=== PATIENT | female | born 1960 | race American Indian/Alaskan Native ===

== ENCOUNTER 2017-08-13 22:44 | Emergency (ER) | payer SELFPAY ==
[2017-08-13] MEDS ORDERED: MOTRIN PO ONE (23:10)
[2017-08-13 23:38] LABS: Basophils % (Auto) 0.2 % (0.0-1.8); Eosinophils % (Auto) 0.1 % (0.0-4.3); Hematocrit 43.9 % (30.3-42.9); Hemoglobin 14.6 gm/dl (10.1-14.3); Mean Corpuscular HGB Conc 33 % (30-34); Mean Corpuscular Hemoglobin 30 pg (28-32); Mean Corpuscular Volume 89 fl (79-97); Platelet Count 251 K/mm3 (140-440); Red Blood Count 4.93 M/mm3 (3.65-5.03); Red Cell Distribution Width 13.7 % (13.2-15.2); White Blood Count 11.7 K/mm3 (4.5-11.0)
[2017-08-13 23:58] LABS: Anion Gap 18 mmol/L; Blood Urea Nitrogen 10 mg/dL (7-17); Calcium 9.4 mg/dL (8.4-10.2); Carbon Dioxide 24 mmol/L (22-30); Chloride 101.7 mmol/L (98-107); Glucose 114 mg/dL (65-100); Potassium 4.1 mmol/L (3.6-5.0); Sodium 140 mmol/L (137-145)
[2017-08-14] MEDS ORDERED: TYLENOL PO ONE (01:00)
[2017-08-14] MEDS ORDERED: TYLENOL ONE (01:05)
--- NOTE | 2017-08-14 01:40 | Emergency Department Report ---
HPI - General Chief Complaint: Abdominal Pain Time Seen by Provider: 08/14/17 01:22 - HPI HPI: This is a 57 year-old female presents to the emergency department from home, with her daughter at bedside, with complaint of a one to 2 day history of some right-sided abdominal and flank pain along with fever. She denies any vaginal bleeding, vaginal discharge, dysuria, cough, chest pain or shortness of breath. She does have a history of kidney stones. She took some Tylenol for her fever and discomfort earlier today without much relief. She does not currently have a primary care physician. Recent travel or sick contacts at home. ED Past Medical Hx - Past Medical History Previous Medical History?: Yes Additional medical history: RIGHT HEAD TUMOR - Surgical History Past Surgical History?: Yes Additional Surgical History: TUMOR REMOVAL / PARTIAL THYROIDECTOMY - Social History Smoking Status: Never Smoker Substance Use Type: None ED Review of Systems ROS: Stated complaint: ABD PAIN; N/V Other details as noted in HPI Comment: All other systems reviewed and negative Constitutional: chills, fever Eyes: denies: eye pain, eye discharge, vision change ENT: denies: ear pain, throat pain Respiratory: denies: cough, shortness of breath, wheezing Cardiovascular: denies: chest pain, palpitations Gastrointestinal: abdominal pain. denies: vomiting Genitourinary: denies: urgency, dysuria, discharge Musculoskeletal: denies: back pain, joint swelling, arthralgia Skin: denies: rash, lesions Neurological: denies: headache, weakness, paresthesias Physical Exam - Physical Exam Vital Signs: Vital Signs 08/13/17 08/14/17 23:01 00:59 Temperature 102.3 F H 100.6 F H Pulse Rate 124 H 114 H Respiratory 18 20 Rate Blood Pressure 123/73 122/71 O2 Sat by Pulse 95 97 Oximetry Physical Exam: GENERAL: The patient is well-developed well-nourished. HENT: Normocephalic. Atraumatic. Patient has moist mucous membranes. EYES: Extraocular motions are intact. Pupils equal reactive to light bilaterally. NECK: Supple. Trachea is midline. CHEST/LUNGS: Clear to auscultation. There is no respiratory distress noted. HEART/CARDIOVASCULAR: Regular. There is mild tachycardia. There is no gallop rub or murmur. ABDOMEN: Abdomen is soft. There is no abdominal or flank tenderness to palpation. No guarding or rebound tenderness. Patient has normal bowel sounds. There is no abdominal distention. SKIN: There is no rash. There is no edema. There is no diaphoresis. NEURO: The patient is awake, alert, and oriented. The patient is cooperative. The patient has no focal neurologic deficits. The patient has normal speech. MUSCULOSKELETAL: There is no tenderness or deformity. There is no limitation range of motion. There is no evidence of acute injury. ED Course Vital Signs 08/13/17 08/14/17 23:01 00:59 Temperature 102.3 F H 100.6 F H Pulse Rate 124 H 114 H Respiratory 18 20 Rate Blood Pressure 123/73 122/71 O2 Sat by Pulse 95 97 Oximetry ED Medical Decision Making - Lab Data Result diagrams: 08/13/17 23:24 08/13/17 23:24 - Radiology Data Radiology results: report reviewed CT of the abdomen and pelvis with IV contrast shows a cholecystectomy. The biliary stent appears in good position. No evidence of appendicitis or obstructive uropathy. Left adnexal mass as described but appears compatible with a dermoid cyst/teratoma. No evidence of torsion. Extensive arthritic changes of the lumbar spine. Benign cortical cyst in both kidneys. - Medical Decision Making 57-year-old female presents to the emergency department with a complaint of some right sided abdominal and flank pain as well as a fever for the past 1-2 days. Her labs are mostly unremarkable and do not show any etiology of infection including no urinary tract infection. No significant leukocytosis. CT of the abdomen and pelvis with IV contrast was done that did not show any urinary or intestinal obstructions. No pancreatitis, no appendicitis or any obvious source of infection. She has a previous cholecystectomy. There is a left-sided adnexal mass that appears most consistent with a dermoid cyst and/or a teratoma. She was given some Tylenol, ibuprofen, IV fluid resuscitation and her vitals improved. Tachycardia resolved, fever resolved. The patient was reevaluated multiple times of her multiple hours and says she is feeling much better. She will be given some referrals for [facility] so that she could follow-up regarding the adnexal mass. She will use Tylenol and/or ibuprofen as necessary for fever and/or discomfort. She will return to the ER with any worsening of her symptoms or any acute distress. - Differential Diagnosis UTI, sepsis, nephrolithiasis, diverticulitis Critical Care Time: No Critical care attestation.: If time is entered above; I have spent that time in minutes in the direct care of this critically ill patient, excluding procedure time. ED Disposition Clinical Impression: Adnexal mass Fever Qualifiers: Fever type: unspecified Qualified Code(s): R50.9 - Fever, unspecified Abdominal pain Qualifiers: Abdominal location: unspecified location Qualified Code(s): R10.9 - Unspecified abdominal pain Disposition: TO HOME OR SELFCARE Is pt being admited?: No Condition: Stable Instructions: Fever in Adults (ED), Abdominal Pain (ED) Additional Instructions: Please follow-up with your primary care physician in the next few days. I have also given you a referral for some local [facility] group's to follow up regarding the adnexal mass seen on CT. This appeared most consistent with a cyst in that region but it is a good idea to follow up with [facility] to make sure. He can use Tylenol every 4 hours and ibuprofen every 6 hours, using weight- based dosing, as needed for fever or discomfort. Return to the emergency department with any intractable fever, worsening of your discomfort, or any acute distress. Referrals: PRIMARY CARE [Primary Care Provider] - [facility] [Provider Group] - 3-5 Days [facility] [Provider Group] - 3-5 Days Time of Disposition: 05:36
[2017-08-14 02:27] LABS: Bacteria,Urine 1+ /HPF (Negative); Bilirubin,Urine SM (Negative); Blood,Urine SM (Negative); Ketones,Urine NEG (Negative); Leukocyte Esterase,Urine NEG (Negative); Mucus,Urine 2+ /HPF; Nitrite,Urine NEG (Negative)
[2017-08-14] MEDS ORDERED: NACL 0.9% 1000 ML 1,000 ML IV ONE (02:31)
[2017-08-14] MEDS ORDERED: NACL ONE (03:06)
[2017-08-14 05:29] VITALS: BP 113/63
--- NOTE | 2017-08-14 10:55 | Cat Scan Report ---
FINAL REPORT EXAM: CT ABDOMEN PELVIS W CON HISTORY: Abd pain, Right flank pain TECHNIQUE: Routine imaging was obtained of the abdomen pelvis following intravenous injection of 100 cc of Omnipaque 350. There are no previous studies available for comparison. FINDINGS: The lung bases are clear. Pleural fluid is not seen. The gallbladder has been removed. There is a stent in good position in the common bile duct. There is no evidence of obstruction of the biliary tree. The adrenal glands, spleen and pancreas appear normal. The liver does not show any focal lesions. The kidneys enhance normally. There are small benign cortical cysts in both kidneys measuring up to 2 cm in diameter. There is no evidence of hydronephrosis. The vascular structures enhance normally. The appendix is normal in size and configuration. The bowel loops are normal in caliber. In the left side of the pelvis there is 7 cm x 8.3 cm x 7.2 cm predominantly fatty lesion containing calcifications and additional soft tissue. This is compatible with a left adnexal dermoid cyst. There is no evidence of torsion. The uterus and bladder appear normal. Free fluid is not seen. The skeletal structures reveal extensive arthritic changes of the lumbar spine. IMPRESSION: Cholecystectomy. The biliary stent appears in good position. No evidence of appendicitis or obstructive uropathy. Left adnexal mass as described compatible with a dermoid cyst/teratoma. No evidence of torsion. Extensive arthritic changes in the lumbar spine. Benign cortical cysts in both kidneys.
== END 2017-08-14 06:17 | disposition home or self-care (01) ==
LOC: ED 22:44
DX: R50.9 Fever, unspecified (principal); R10.9 Unspecified abdominal pain; R19.09 Other intra-abdominal and pelvic swelling, mass and lump
CPT/HCPCS: 36415; 74177; 80048; 81001; 85025; 87086; 96360; 99284; J7030; Q9967

== ENCOUNTER 2017-10-24 15:39 | Emergency (ER) | payer OTHER ==
[2017-10-24 16:32] LABS: Basophils % (Auto) 0.4 % (0.0-1.8); Hematocrit 41.7 % (30.3-42.9); Hemoglobin 13.7 gm/dl (10.1-14.3); Mean Corpuscular HGB Conc 33 % (30-34); Mean Corpuscular Hemoglobin 29 pg (28-32); Mean Corpuscular Volume 90 fl (79-97); Platelet Count 247 K/mm3 (140-440); Red Blood Count 4.65 M/mm3 (3.65-5.03); Red Cell Distribution Width 13.9 % (13.2-15.2); White Blood Count 8.9 K/mm3 (4.5-11.0)
--- NOTE | 2017-10-24 16:35 | Cat Scan Report ---
FINAL REPORT PROCEDURE: CT HEAD/BRAIN WO CON TECHNIQUE: Computerized tomography of the head was performed without contrast material. HISTORY: Daughter states tumor removed in 2013. The past two weeks has been showing more and more cognitive decline until today she is not following commands well and not speaking. COMPARISON: No prior studies are available for comparison. FINDINGS: There has been right frontal and right temporal craniotomy. There is encephalomalacia in the right temporal lobe with ex vacuo dilatation of the right temporal horn. No prior postsurgical studies are available for comparison. There is mass effect however on the frontal horns which are both displaced laterally, with suspicion for a partially solid and cystic mass in the midline of the anterior cranial fossa, positioned between the frontal horns. The borders of the mass are ill-defined and accurate measurement could be obtained with post-contrast imaging. White matter low attenuation in the right frontal lobe is likely related to vasogenic edema. The basal cisterns appear intact. No acute hemorrhage is seen. No acute fracture is seen. The visualized paranasal sinuses and mastoids are aerated. IMPRESSION: Findings above are concerning for a partially cystic mass located in the right frontal lobe and in the midline, with mass effect on the frontal horns. Recommend MRI with contrast. Findings were discussed by telephone with at 3:29 p.m. central standard time on 10/24/2017.
[2017-10-24 16:45] LABS: INR 0.98 (0.87-1.13)
[2017-10-24 16:59] LABS: Anion Gap 20 mmol/L; BUN/Creatinine Ratio 18; Blood Urea Nitrogen 14 mg/dL (7-17); Calcium 9.9 mg/dL (8.4-10.2); Carbon Dioxide 26 mmol/L (22-30); Chloride 109.5 mmol/L (98-107); Glucose 110 mg/dL (65-100); Potassium 4.1 mmol/L (3.6-5.0); Sodium 151 mmol/L (137-145)
--- NOTE | 2017-10-24 18:54 | Emergency Department Report ---
ED Neuro Deficit HPI - General Chief Complaint: Neuro Symptoms/Deficit Stated Complaint: HEADACHE Time Seen by Provider: 10/24/17 18:25 Source: patient Mode of arrival: Ambulatory Limitations: No Limitations - History of Present Illness Initial Comments: Patient is 57 years old female with no significant past medical history except for a brain tumor that been removed in 2012 in [facility]. They're told me that she was told it was a benign tumor that did not require radiation or chemotherapy. Daughter stated that her mother for the last 2 weeks became more confused, seemed to have trouble focusing and she is very slow to walk. She is having difficulty following instructions. And since yesterday she started complaining of frontal headache and 1 episode of urinary incontinence. -: Gradual Location: speech Presenting Symptoms: Present: Altered Mental Status Place: home Quality: weak - Related Data Allergies/Adverse Reactions: Allergies Allergy/AdvReac Type Severity Reaction Status Date / Time No Known Allergies Allergy Verified 08/13/17 23:01 ED Review of Systems ROS: Stated complaint: HEADACHE Other details as noted in HPI Comment: All other systems reviewed and negative Constitutional: denies: chills, fever Eyes: denies: vision change Respiratory: denies: cough, orthopnea, shortness of breath, SOB with exertion, SOB at rest Cardiovascular: denies: chest pain, palpitations Gastrointestinal: denies: abdominal pain, nausea, vomiting, diarrhea Neurological: headache, weakness, confusion, abnormal gait. denies: numbness, paresthesias ED Past Medical Hx - Past Medical History Additional medical history: RIGHT HEAD TUMOR-benign 2012 - Surgical History Additional Surgical History: TUMOR REMOVAL / PARTIAL THYROIDECTOMY - Social History Smoking Status: Current Every Day Smoker Substance Use Type: None ED Neuro Physical Exam - General Limitations: No Limitations General appearance: alert, in no apparent distress, obtunded Suspected Stroke: No - Head Head exam: Present: atraumatic - Eye Eye exam: Present: normal appearance, PERRL - ENT ENT exam: Present: normal exam, normal orophraynx, mucous membranes moist - Neck Neck exam: Present: normal inspection, full ROM, lymphadenopathy. Absent: tenderness, meningismus - Respiratory Respiratory exam: Present: normal lung sounds bilaterally. Absent: respiratory distress, wheezes, rales, rhonchi, stridor, chest wall tenderness, accessory muscle use, decreased breath sounds, prolonged expiratory - Cardiovascular Cardiovascular Exam: Present: regular rate, normal rhythm, normal heart sounds - GI/Abdominal GI/Abdominal exam: Present: soft, normal bowel sounds. Absent: distended, tenderness, guarding, rebound, rigid, organomegaly, mass, bruit, pulsatile mass , hernia - Extremities Exam Extremities exam: Present: normal inspection, full ROM, normal capillary refill. Absent: tenderness, pedal edema, joint swelling, calf tenderness - Back Exam Back exam: Present: normal inspection, full ROM. Absent: tenderness, CVA tenderness (R), CVA tenderness (L), muscle spasm, paraspinal tenderness - Neurological Exam Neurological exam: Present: alert, altered, CN II-XII intact, normal gait (very slow) - Skin Skin exam: Present: warm, intact, normal color ED Course Vital Signs 10/24/17 15:46 Temperature 99.3 F Pulse Rate 102 H Respiratory 18 Rate Blood Pressure 111/71 O2 Sat by Pulse 97 Oximetry - Lab Data Result diagrams: 10/24/17 16:04 10/24/17 16:04 Lab Results 10/24/17 10/24/17 10/24/17 Range/Units 16:04 16:04 16:04 WBC 8.9 (4.5-11.0) K/mm3 RBC 4.65 (3.65-5.03) M/mm3 Hgb 13.7 (10.1-14.3) gm/dl Hct 41.7 (30.3-42.9) % MCV 90 (79-97) fl MCH 29 (28-32) pg MCHC 33 (30-34) % RDW 13.9 (13.2-15.2) % Plt Count 247 (140-440) K/mm3 Lymph % (Auto) 21.7 (13.4-35.0) % Upton % (Auto) 7.8 H (0.0-7.3) % Eos % (Auto) 1.0 (0.0-4.3) % Baso % (Auto) 0.4 (0.0-1.8) % Lymph # 1.9 (1.2-5.4) K/mm3 Upton # 0.7 (0.0-0.8) K/mm3 Eos # 0.1 (0.0-0.4) K/mm3 Baso # 0.0 (0.0-0.1) K/mm3 Seg Neutrophils % 69.1 (40.0-70.0) % Seg Neutrophils # 6.1 (1.8-7.7) K/mm3 PT 13.5 (12.2-14.9) Sec. INR 0.98 (0.87-1.13) APTT 28.0 (24.2-36.6) Sec. Thrombin Time (15.1-19.6) Sec. Sodium 151 H (137-145) mmol/L Potassium 4.1 (3.6-5.0) mmol/L Chloride 109.5 H (98-107) mmol/L Carbon Dioxide 26 (22-30) mmol/L Anion Gap 20 mmol/L BUN 14 (7-17) mg/dL Creatinine 0.8 (0.7-1.2) mg/dL Estimated GFR > 60 ml/min BUN/Creatinine Ratio 18 % Glucose 110 H (65-100) mg/dL POC Glucose (70-105) Calcium 9.9 (8.4-10.2) mg/dL Troponin T < 0.010 (0.00-0.029) ng/mL 10/24/17 10/24/17 Range/Units 16:04 16:04 WBC (4.5-11.0) K/mm3 RBC (3.65-5.03) M/mm3 Hgb (10.1-14.3) gm/dl Hct (30.3-42.9) % MCV (79-97) fl MCH (28-32) pg MCHC (30-34) % RDW (13.2-15.2) % Plt Count (140-440) K/mm3 Lymph % (Auto) (13.4-35.0) % Upton % (Auto) (0.0-7.3) % Eos % (Auto) (0.0-4.3) % Baso % (Auto) (0.0-1.8) % Lymph # (1.2-5.4) K/mm3 Upton # (0.0-0.8) K/mm3 Eos # (0.0-0.4) K/mm3 Baso # (0.0-0.1) K/mm3 Seg Neutrophils % (40.0-70.0) % Seg Neutrophils # (1.8-7.7) K/mm3 PT (12.2-14.9) Sec. INR (0.87-1.13) APTT (24.2-36.6) Sec. Thrombin Time 15.5 (15.1-19.6) Sec. Sodium (137-145) mmol/L Potassium (3.6-5.0) mmol/L Chloride (98-107) mmol/L Carbon Dioxide (22-30) mmol/L Anion Gap mmol/L BUN (7-17) mg/dL Creatinine (0.7-1.2) mg/dL Estimated GFR ml/min BUN/Creatinine Ratio % Glucose (65-100) mg/dL POC Glucose 114 H (70-105) Calcium (8.4-10.2) mg/dL Troponin T (0.00-0.029) ng/mL - EKG Data -: EKG Interpreted by Me EKG shows normal: sinus rhythm Rate: normal Interpretation: no acute changes - Radiology Data Radiology results: report reviewed Referring Physician: JEN RODRIGUEZ Patient Name: CELENA BARBOSA Date of : 1960 Sex: Female Report Date: 2017-10-24 Report Status: Finalized Findings [facility] [address] [place] [address] Cat Scan Report Signed Patient: CELENA BARBOSA MR#: [id number] : 1960 Acct:[id number] Age/Sex: 57 / F ADM Date: 10/24/17 Loc: ED Attending Dr: Ordering Physician: JEN RODRIGUEZ MD Date of Service: 10/24/17 Procedure(s): CT head/brain wo con Accession Number(s): [id number] cc: JEN RODRIGUEZ MD FINAL REPORT PROCEDURE: CT HEAD/BRAIN WO CON TECHNIQUE: Computerized tomography of the head was performed without contrast material. HISTORY: Daughter states tumor removed in 2012. The past two weeks has been showing more and more cognitive decline until today she is not following commands well and not speaking. COMPARISON: No prior studies are available for comparison. FINDINGS: There has been right frontal and right temporal craniotomy. There is encephalomalacia in the right temporal lobe with ex vacuo dilatation of the right temporal horn. No prior postsurgical studies are available for comparison. There is mass effect however on the frontal horns which are both displaced laterally, with suspicion for a partially solid and cystic mass in the midline of the anterior cranial fossa, positioned between the frontal horns. The borders of the mass are ill-defined and accurate measurement could be obtained with post-contrast imaging. White matter low attenuation in the right frontal lobe is likely related to vasogenic edema. The basal cisterns appear intact. No acute hemorrhage is seen. No acute fracture is seen. The visualized paranasal sinuses and mastoids are aerated. IMPRESSION: Findings above are concerning for a partially cystic mass located in the right frontal lobe and in the midline, with mass effect on the frontal horns. Recommend MRI with contrast. Findings were discussed by telephone with at 3:29 p.m. central standard time on 10/24/2017. Transcribed By: [facility] Dictated By: TABITHA QUIJANO M.D. Electronically Authenticated By: TABITHA QUIJANO M.D. Signed Date/Time: 10/24/17 1232 DD/ 1232 TD/TT: 10/24/17 1232 - Medical Decision Making I discussed the patient was Dr. Jauregui from hospital he agreed to accept the patient transferred to [facility]. Critical care attestation.: If time is entered above; I have spent that time in minutes in the direct care of this critically ill patient, excluding procedure time. ED Disposition Clinical Impression: Altered mental status, Brain tumor Disposition: DC/TX-70 ANOTHER TYPE [facility]TH[facility]ARE Is pt being admited?: No Condition: Stable Referrals: PRIMARY CARE, [Primary Care Provider] - 3-5 Days
[2017-10-24] MEDS ORDERED: KEPPRA 1,000 MG in NACL 0.9% 100 ML IV ONE (19:11)
[2017-10-24] MEDS ORDERED: DECADRON IV ONE (19:11)
[2017-10-24] MEDS ORDERED: KEPPRA 1,000 MG/NS 0.75% 100ML 0 MG/0 ML BAG IV ONE (19:26)
[2017-10-24 23:14] VITALS: BP 119/96
== END 2017-10-25 00:30 | disposition other institution (70) ==
LOC: ED 15:39
DX: D49.6 Neoplasm of unspecified behavior of brain (principal); R41.82 Altered mental status, unspecified; F17.200 Nicotine dependence, unspecified, uncomplicated
CPT/HCPCS: 36415; 70450; 80048; 82962; 84484; 85025; 85610; 85670; 85730; 93005; 93010; 96365; 96375; 99285; J1100; J1953

== ENCOUNTER 2018-03-24 09:07 | Emergency (ER) | payer MEDICAID ==
[~2018-03-24 09:07] MED LIST: ADRENALIN ONE
--- NOTE | 2018-03-24 09:21 | Emergency Department Report ---
ED CPR HPI - General Chief Complaint: Cardiac Arrest/CPR Stated Complaint: CARDIAC ARREST Time Seen by Provider: 03/24/18 09:20 - History of Present Illness Initial Comments: EMS was called by a family member approximately 15 minutes after patient was found down unresponsive without any CPR. This was the report received from the accounts payable professional. When paramedics arrived on the scene, patient was asystolic. EMS started CPR and the patient on arrival. Patient already has a tracheostomy so they contacted the tracheostomy so they connected the tracheostomy tube to an ambu bag and started bagging the patient. Patient was given 2 rounds of epinephrine by the accounts payable professional. On arrival to the ED CPR had been in progress for more than 35 minutes according to accounts payable professional. Patient was to asystolic on arrival to the ED. One round of 80 was given in the ED as CPR continued. Patient is to remain asystolic. She was pronounced at 09:09am. I informed the patients daughter about the patient expiration. MD Complaint: found unresponsive, stopped breathing -: minute(s) (15) Place: home Bystander CPR Performed: No AED Applied by Bystander/[employer]ship: No Initial Findings in the Field: unresponsive, no respirations, no pulse ROSC in the Field: Yes (15 minutes after she became unresponsive without breathing.) Treatments Prior to Arrival: BMV, epinephrine mgs # - Related Data Allergies Allergy/AdvReac Type Severity Reaction Status Date / Time No Known Allergies Allergy Verified 08/13/17 23:01 ED Review of Systems ROS: Stated complaint: CARDIAC ARREST Other details as noted in HPI Comment: All other systems reviewed and negative ED Past Medical Hx - Past Medical History Additional medical history: RIGHT HEAD TUMOR-benign 2011 - Surgical History Additional Surgical History: TUMOR REMOVAL / PARTIAL THYROIDECTOMY - Social History Smoking Status: Current Every Day Smoker Substance Use Type: None ED Physical Exam - General Limitations: Other (Unresponsive) General appearance: other (Unresponsive) - Head Head exam: Present: atraumatic, normal inspection - Eye Eye exam: Present: other (Fixed and dilated.) Pupils: Present: other (Fixed and dilated.) - ENT ENT exam: Present: mucous membranes moist - Neck Neck exam: Present: other (Tracheostomy in place.) - Respiratory Respiratory exam: Present: other (None) - Cardiovascular Cardiovascular Exam: Present: other (asystole) - GI/Abdominal GI/Abdominal exam: Present: soft, other (Feeding tube in place.) - Neurological Exam Neurological exam: Present: other (GCS = 3) - Skin Skin exam: Present: warm, dry, intact ED Course - Reevaluation(s) Reevaluation #1: 03/24/18 09:55 Patient was pronounced after unsuccessful CPR for over 45 minutes total. Patient was found asystolic at home, and she remained asystolic throughout the duration of the CPR. ED Medical Decision Making - Medical Decision Making Cardiac Arrest. Critical care attestation.: If time is entered above; I have spent that time in minutes in the direct care of this critically ill patient, excluding procedure time. ED Disposition Clinical Impression: Cardiac arrest Disposition: DC-20 Is pt being admited?: No Does the pt Need Aspirin: No Condition: Critical
== END 2018-03-24 12:00 ==
LOC: ED 09:07
DX: I46.9 Cardiac arrest, cause unspecified (principal); F17.200 Nicotine dependence, unspecified, uncomplicated
CPT/HCPCS: 92950; 99285; J0171